=== PATIENT | male | born 1955 | race Caucasian/White ===

== ENCOUNTER 2017-01-21 10:03 | Day surgery (SDC) | payer OTHER ==
--- NOTE | ~2017-01-21 | EGD ---
EGD REPORT [facility] [address] [place] [address] NAME: PAMELA BAER : 55 STATUS : REG [facility]#: [id number] AGE: 61 ADM/REG DATE : 01/21/17 MR#: [id number] REPORT SERV DATE: 01/21/17 DICTATED BY: JEFFREY MARCUS DATE: 01/21/17 REPORT STATUS : Draft TRANSCRIBED BY: [employer] DATE: 01/21/17 [facility] Patient Name: Pamela Baer Date of : 1955 Attending MD: JEFFREY MARCUS, Procedure Date No Time: 01/21/2017 Procedure: Colonoscopy Indications: Screening for colorectal malignant neoplasm Referring MD: TJ TAVAREZ MD Medicines: Monitored Anesthesia Care Complications: No immediate complications. Estimated blood loss: None. Procedure: Pre-Anesthesia Assessment: - ASA Grade Assessment: III - A patient with severe systemic disease. After I obtained informed consent, the scope was passed under direct vision. Throughout the procedure, the patient's blood pressure, pulse, and oxygen saturations were monitored continuously. The CF [id number] was introduced through the anus and advanced to the cecum, identified by appendiceal orifice and ileocecal valve. The colonoscopy was performed without difficulty. The patient tolerated the procedure well. The quality of the bowel preparation was adequate. The ileocecal valve, appendiceal orifice and rectum were photographed. Findings: The perianal and digital rectal examinations were normal. Multiple small-mouthed diverticula were found in the sigmoid colon, in the descending colon, in the transverse colon and in the ascending colon. There was no evidence of diverticular bleeding. A sessile polyp was found in the sigmoid colon. The polyp was 4 mm in size. The polyp was removed with a cold biopsy forceps. Resection and retrieval were complete. Verification of patient identification for the specimen was done. Estimated blood loss was minimal. A sessile polyp was found in the rectum. The polyp was 6 mm in size. The polyp was removed with a cold snare. Resection and retrieval were complete. Verification of patient identification for the specimen was done. Estimated blood loss was minimal. Internal hemorrhoids were found during retroflexion and were Grade I (internal hemorrhoids that do not prolapse). The exam was otherwise without abnormality on direct and retroflexion views. Impression: - Diverticulosis in the sigmoid colon, in the descending colon, in the transverse colon and in the ascending EGD REPORT [address] [place]. [address] NAME: PAMELA BAER : 55 STATUS : REG [facility] [place] PAT#: [id number] AGE: 61 ADM/REG DATE : 01/21/17 MR#: [id number] REPORT SERV DATE: 01/21/17 DICTATED BY: JEFFREY MARCUS DATE: 01/21/17 REPORT STATUS : Draft TRANSCRIBED BY: [facility] DATE: 01/21/17 colon. There was no evidence of diverticular bleeding. - One 4 mm polyp in the sigmoid colon. Resected and retrieved. - One 6 mm polyp in the rectum. Resected and retrieved. - Internal hemorrhoids. - The examination was otherwise normal on direct and retroflexion views. Recommendation: - Patient has a contact number available for emergencies. The signs and symptoms of potential delayed complications were discussed with the patient. Return to normal activities tomorrow. Written discharge instructions were provided to the patient. - Return to previous diet. - Continue present medications. - Await pathology results. - Repeat colonoscopy for surveillance based on pathology results. Procedure Code(s): --- Professional --- 57332, Colonoscopy, flexible, proximal to splenic flexure; with removal of tumor(s), polyp(s), or other lesion(s) by snare technique 59216, 59, Colonoscopy, flexible, proximal to splenic flexure; with biopsy, single or multiple Diagnosis Code(s): --- Professional --- K64.0, First degree hemorrhoids K57.30, Diverticulosis of large intestine without perforation or abscess without bleeding K62.1, Rectal polyp D12.5, Benign neoplasm of sigmoid colon Z12.11, Encounter for screening for malignant neoplasm of colon CPT copyright 2013 [employer]. All rights reserved. The codes documented in this report are preliminary and upon tool lathe operator review may be revised to meet current compliance requirements. JEFFREY MARCUS, 01/21/2017 11:37 AM Number of Addenda: 0 Note Initiated On: 01/21/2017 10:04 AM EGD REPORT [facility] [address] [address] NAME: PAMELA BAER : 55 STATUS : REG [facility] [place] PAT#: [id number] AGE: 61 ADM/REG DATE : 01/21/17 MR#: [id number] REPORT SERV DATE: 01/21/17 DICTATED BY: JEFFREY MARCUS DATE: 01/21/17 REPORT STATUS : Draft TRANSCRIBED BY: [employer] DATE: 01/21/17 Scope Withdrawal Time 0 hours 18 minutes 23 seconds [address] [place] [address]
[~2017-01-21 10:03] MED LIST: ALEVE220 MG PO; CRESTOR20 MG PO; GLUCPH PO; MOBIC7.5 PO; TRULICITY0.75 MG/0. SQ; ZESTRIL2.5 MG PO; ZOCOR20 PO
== END 2017-01-21 23:59 | disposition home or self-care (01) ==
LOC: DMU 10:03
PROVIDERS: Internal Medicine Gastroenterology
PROC: 0DBN8ZX Excision of Sigmoid Colon, Via Natural or Artificial Opening Endoscopic, Diagnostic (ICD-10-PCS; principal; 2017-01-21 11:30)
PROC: 0DBP8ZX Excision of Rectum, Via Natural or Artificial Opening Endoscopic, Diagnostic (ICD-10-PCS; 2017-01-21 11:30)
DX: Z12.11 Encounter for screening for malignant neoplasm of colon (principal); K62.1 Rectal polyp; K64.0 First degree hemorrhoids; K57.30 Diverticulosis of large intestine without perforation or abscess without bleeding; I10 Essential (primary) hypertension; J44.9 Chronic obstructive pulmonary disease, unspecified; E11.9 Type 2 diabetes mellitus without complications; F17.210 Nicotine dependence, cigarettes, uncomplicated; Z88.2 Allergy status to sulfonamides; Z96.652 Presence of left artificial knee joint; Z98.890 Other specified postprocedural states
CPT/HCPCS: 82962; 88305